=== PATIENT | male | born 1960 | race Caucasian/White ===

== ENCOUNTER → 2020-09-01 | Day surgery (SDC) | payer OTHER ==
[~2020-09-01] MED LIST: NOHOMEMEDICATIONS PO; OXYCODONE HCL 55 MG PO
--- NOTE | ~2020-09-01 | OP ---
[address] [address] OPERATIVE REPORT Name: GAURANG YOON Room: [facility]#: [id number] Admission: 09/01/20 Attend Phys: Joaquim Reyes DO Discharge: Date of : 58 Report #: [id number] THIS REPORT FOR: cc: Tonio Vaz,Tonio Gaytan,Joaquim Doan DO ~ DOC #: [id number] cc: Tonio Vaz DO Dictated by Tan Castanon DO DATE OF SURGERY: 09/01/2020 PREOPERATIVE DIAGNOSIS: Left inguinal hernia. POSTOPERATIVE DIAGNOSIS: Left inguinal hernia. SURGEON: Joaquim Reyes DO. METER ENGINEER: Tan Castanon, PGY5. OPERATION PERFORMED: Da Kamron robotic-assisted laparoscopic left inguinal hernia repair with ProGrip mesh. ANESTHESIA: General and TAP block. ESTIMATED BLOOD LOSS: 20 mL. SPECIMENS: None. COMPLICATIONS: None. INDICATIONS: The patient is a 60-year-old male, who presented to our clinic with a symptomatic bulge of the left groin. He was found on physical exam to have a left inguinal hernia. He was informed of the risks and benefits of robotic-assisted laparoscopic left inguinal hernia repair with possible right-sided repair with risks including, but not limited to bleeding, infection, injury to intra-abdominal structures, hernia recurrence, mesh complications. He understood these risks and decided to proceed with surgery. DESCRIPTION OF PROCEDURE: After informed consent was obtained, the patient was brought to the operating room and placed in supine position. SCDs were on and running. Preoperative antibiotics were given. General anesthesia was administered with an ET tube. The patient was provided with bilateral transversus abdominis plane blocks by anesthesia. The patient was prepped and draped in the usual sterile fashion. A surgical pause was held to confirm proper patient and procedure. A supraumbilical [place] [address] OPERATIVE REPORT Name: CARGAURANG Eddie Room: [facility]#: [id number] Admission: 09/01/20 Attend Phys: Joaquim Reyes, DO Discharge: Date of : 58 Report #: [id number] with an 11 blade. Dissection was bluntly carried down to the fascia using cautery. The fascia was scored using cautery and elevated with two Kochers. Peritoneum was bluntly entered using a Hallie. An 8 mm robotic camera trocar was inserted. The abdomen was insufflated. Camera was introduced. Two additional 8 mm robotic trocars were placed in the left and right abdomen. We placed the patient into Trendelenburg and exploration of the groin and the pelvis was undertaken. There was evidence of a left indirect inguinal hernia, but no evidence of a right-sided hernia. A left-sided anatomical ProGrip mesh, 10 x 15 cm was selected, folded and inserted into the abdomen as well as a 2-0 V-Loc 90. We then docked the da Kamron Si robot. We broke scrub and went to the console. The peritoneal flap was developed from the medial umbilical fold to the peritoneum overlying the left ASIS. Combination of cautery and blunt dissection was used to create a preperitoneal plane. This plane was developed medially and inferiorly until the pubic ramus was reached. The lateral plane was also dissected to accommodate for eventual mesh placement. There was evidence of an indirect inguinal hernia as well as a large left cord lipoma. The cord lipoma was grasped and bluntly reduced and from the cord structures. Once the distal most extent of the cord lipoma was identified. Blunt dissection and cautery were used to separate this from the cord structures. The cord lipoma was completely reduced into the preperitoneal plane without amputating the base of the lipoma. This easily reduced into the preperitoneal space and was from the cord structures as to prevent recurrence of its positioning in the canal. Once the preperitoneal plane was completely dissected to accommodate the mesh, the ProGrip mesh was placed within the preperitoneal space and deployed. There was excellent opposition of the mesh to the tissues. This was photographed. Once it was in adequate position, the peritoneal flap was closed using a running continuous suture with 2-0 V-Loc. There was a small tear in the peritoneum that was closed with an additional needle that was brought in a 2-0 Vicryl. This was closed with a single simple interrupted suture. The peritoneal flap was photographed. The two suture needles were removed. All counts were correct. The abdomen was then desufflated, ports were removed under direct visualization. The camera trocar was removed. The fascia was elevated with two Kochers three sutures [id number]-wumna with 0 Vicryl were used to close the fascia. The skin was closed using 4-0 Monocryl. Wounds were cleansed and dressed with Dermabond. The patient was emerged from anesthesia and transferred to the PACU in stable condition. All counts were correct. Tan Castanon DO CH/DARCI [address] [address] OPERATIVE REPORT Name: GAURANG YOON [facility] [id number] Admission: 09/01/20 Attend Phys: Joaquim Reyes DO Discharge: Date of : 58 Report #: [id number] By: [id number] Reyes DO /nt
[2020-09-01 06:44] LABS: HEMATOCRIT 42.6 % (42.0-52.0); HEMOGLOBIN 14.9 gm/dL (14.0-18.0); MCH 32.6 pg (26.0-34.0); MCV 93.2 fL (80.0-100.0); MPV 6.9 fl. (7.2-11.1); RBC 4.57 mil/uL (4.50-6.00); WBC 6.3 thou/uL (4.0-11.0)
[2020-09-01 06:52] LABS: CALCIUM 8.5 mg/dL (8.5-10.1); CREATININE 0.9 mg/dL (0.6-1.3); POTASSIUM 4.3 mmol/L (3.5-5.1)
--- NOTE | 2020-09-01 10:00 | EKG ---
[place] [address] ELECTROCARDIOGRAM REPORT Name: GAURANG YOON Room: [facility]#: [id number] Admission: 09/01/20 Attend Phys: Joaquim Reyes DO Discharge: Date of : 58 Date of Service: 09/01/20730 Report #: [id number] THIS REPORT FOR: //name// [facility] Test Date: 2020-09-01 Test Time: 07:31:59 Pat Name: GAURANG YOON Department: Room: Gender: Crisis Manager: : 1960 Requested By: Joaquim Reyes Order Number: [id number] Reading MD: Willie Doe Measurements Intervals [place] Rate: 48 P: -22 NE: 142 QRS: 6 QRSD: 90 T: 71 QT: 473 QTc: 423 Interpretive Statements Sinus bradycardia Minimal ST elevation, inferior leads early repolarization No previous ECG available for comparison Electronically Signed On 09-01-2020 10:00:11 CDT by Willie Doe [email or web address] <ELECTRONICALLY SIGNED> By: Willie Doe MD, [facility] 09/01/20 1000 0 0 Willie Doe MD, FACC /EPI
== END | disposition home or self-care (01) ==
LOC: M.SUR 05:57
PROVIDERS: ATTEND Surgery
DX: K40.90 Unilateral inguinal hernia, without obstruction or gangrene, not specified as recurrent (principal); K21.9 Gastro-esophageal reflux disease without esophagitis; F32.9 Major depressive disorder, single episode, unspecified; F41.9 Anxiety disorder, unspecified; Z98.890 Other specified postprocedural states; Z79.899 Other long term (current) drug therapy; Z20.822 Contact with and (suspected) exposure to COVID-19; Z98.52 Vasectomy status

== ENCOUNTER 2021-02-20 17:49 | Inpatient (IN) | payer OTHER ==
[~2021-02-20] VITALS: Ht 170.2 cm; Wt 68.0 kg
--- NOTE | ~2021-02-20 | CON ---
[address] [address] CONSULTATION Name: GAURANG YOON Room: [address] IN M.R.#: [id number] Admission: 02/20/21 Attend Phys: Christian Rios MD Discharge: Date of : 58 Report #: [id number] THIS REPORT FOR: cc: Tonio Vaz Bruce R. DO Blick, David R. MD [facility] ~ DATE OF CONSULTATION: 02/20/2021 CARDIOLOGY CONSULTATION HISTORY OF PRESENT ILLNESS: The patient is a 60-year-old white male who came to the Emergency Room complaining of chest pain. The patient has no previous history of heart disease. He stays very active. He has had no previous cardiac evaluation. He currently is not under physician's care. He notes; however, for the past 2 days prior to admission, he was having chest burning off and on all day long. It apparently never completely went away. However, it got worse, has not improved. On the day of admission, the burning got worse and went into his jaw, arms, he became diaphoretic. Denied any shortness of breath or nausea. His finally drove him to the Emergency Room. ECG showed evidence of acute anterior STEMI. I was asked to see him on emergent basis. At this time, he continues to have the chest discomfort. He denies any recent fever, cough, bleeding. The pain was not related to food. He has had no trauma to his chest. He denies a history of exertional dyspnea, palpitations, syncope, peripheral edema. PAST MEDICAL HISTORY: He had a hernia repair here at [facility] 6 months ago. He has no previous history of hypertension, diabetes, hyperlipidemia. He apparently did have COVID-19 a year ago. CURRENT MEDICATIONS: He is currently on no medications. ALLERGIES: HE HAS A PREVIOUS INTOLERANCE TO LEXAPRO. FAMILY HISTORY: His mother had hypertension. SOCIAL HISTORY: He is . He and his live at [place]. He stays active, riding a bike. He has a [employer] business. He stays very active. He does not smoke cigarettes. He does smoke marijuana. He used to drink fairly heavily, but currently drinks only occasionally. REVIEW OF SYSTEMS: No history of stroke, asthma, liver disease, kidney disease, cancer, psychiatric illness, chronic skin condition. PHYSICAL EXAMINATION: GENERAL: Revealed a middle-aged male, who [place] [address] CONSULTATION Name: GAURANG YOON Room: [address] IN [facility]#: [id number] Admission: 02/20/21 Attend Phys: Christian Rios MD Discharge: Date of : 58 Report #: [id number] secondary to chest pain. VITAL SIGNS: His blood pressure was 160/90, pulse 60, he is afebrile. HEENT: He was anicteric. Conjunctivae pink. Mucous membranes moist. NECK: Veins not distended. No carotid bruits. Neck supple. CHEST: Clear to auscultation. HEART: Regular rate and rhythm. No murmur. ABDOMEN: Soft. EXTREMITIES: Had no edema. Posterior tibial pulse 2+ bilaterally. SKIN: Cool and dry. NEUROLOGIC: Nonfocal. LABORATORY DATA: His ECG on admission showed a sinus rhythm with ST segment elevation of up to 6 mm in leads V1, V2, V3, V4, reciprocal ST segment depression in lead II, III, and aVF. His chest x-ray on admission showed normal heart size, clear lung ro. Some atelectasis was noted. His lab work, sodium 138, potassium 3.7, creatinine 0.7, glucose 101. His high sensitivity troponin on admission was 994. BNP 1370, cholesterol 227, triglyceride 251, HDL 42, LDL 135. His hemoglobin was 14.8. His COVID antigen stat test was negative. IMPRESSION AND RECOMMENDATIONS: 1. Acute anterior STEMI. Recommend urgent cardiac catheterization. 2. Elevated blood pressure. Recommend beta paty. 3. Hyperlipidemia. I would start statin drugs. Critical care time was from 6:15 p.m. until 8:15 p.m. for a total of 2 hours. By: 0749 [id number] Doe MD, FACC /nt
[2021-02-20 17:52] VITALS: BP 190/101
[2021-02-20 18:11] LABS: HEMOGLOBIN 16.5 gm/dL (14.0-18.0); MCH 32.2 pg (26.0-34.0); MCHC 34.8 g/dL (28.0-37.0); MCV 92.5 fL (80.0-100.0)
[2021-02-20 18:13] LABS: ABSOLUTE BASOPHILS 0.1 thou/uL (0.0-0.2); ABSOLUTE LYMPHOCYTES 1.2 thou/uL (0.8-5.3); ABSOLUTE MONOCYTES 0.6 thou/uL (0.0-1.2); ABSOLUTE NEUTROPHILS 8.5 thou/uL (1.6-8.1); BASOPHILS 0.5 %; EOSINOPHILS 0.5 %; HEMATOCRIT 47.5 % (42.0-52.0); LYMPHOCYTES 11.5 %; MONOCYTES 6.1 %; MPV 7.1 fl. (7.2-11.1); NUCLEATED RBCS 0 /100WBC; PLATELET COUNT* 381 thou/uL (150-400); POLYS 81.4 %; RBC 5.14 mil/uL (4.50-6.00); RDW-CV 13.3 % (10.5-14.5); WBC 10.4 thou/uL (4.0-11.0)
[2021-02-20 18:21] LABS: CALCIUM 9.2 mg/dL (8.5-10.1); POTASSIUM 3.5 mmol/L (3.5-5.1)
--- NOTE | 2021-02-20 18:27 | NUR ---
REFER TO STEMI SHEET FOR FURTHER DOCUMENTATION
[2021-02-20 18:31] LABS: ALBUMIN 4.5 g/dL (3.4-5.0); MAGNESIUM 2.1 mg/dL (1.8-2.4); TOTAL BILIRUBIN 0.5 mg/dL (<0.1-1.0); TOTAL PROTEIN 8.9 g/dL (6.4-8.2)
[2021-02-20 18:32] LABS: APTT 29.7 Seconds (25.0-31.3); INR 1.1; PROTIME 11.1 Seconds (9.20-11.50)
--- NOTE | 2021-02-20 18:36 | NUR ---
PT TO MICROPHONE OPERATOR AT THIS TIME WITH TAMARA ROBERT RN AND MICROPHONE OPERATOR RN. PT ON MONITOR AND 02 AT 2L PER NC. PT AND BELONGINGS TAKEN TO MICROPHONE OPERATOR AND TAKEN TO WAITING ROOM.
[2021-02-20 18:37] VITALS: BP 140/84
[2021-02-20 20:30] VITALS: BP 151/88
[2021-02-20 21:00] VITALS: BP 153/98
[2021-02-20 22:00] VITALS: BP 143/108
[2021-02-20 23:00] VITALS: BP 144/90
[2021-02-21] VITALS (20 sets, daily range): BP systolic 118–163; BP diastolic 75–107
[2021-02-21 03:18] LABS: HEMATOCRIT 42.2 % (42.0-52.0); HEMOGLOBIN 14.8 gm/dL (14.0-18.0); MCV 91.6 fL (80.0-100.0); MPV 7.4 fl. (7.2-11.1); RBC 4.61 mil/uL (4.50-6.00); RDW-CV 13.2 % (10.5-14.5); WBC 9.1 thou/uL (4.0-11.0)
[2021-02-21 03:29] LABS: ANION GAP 12 mmol/L (7-16); BUN 12 mg/dL (7-18); CALCIUM 8.7 mg/dL (8.5-10.1); CHLORIDE 102 mmol/L (98-107); CHOLESTEROL 227 mg/dL (<200); CO2 24 mmol/L (21-32); CREATININE 0.7 mg/dL (0.6-1.3); GLUCOSE 101 mg/dL (70-99); HDL CHOLESTEROL 42 mg/dL (>40); LDL CHOLESTEROL 135 mg/dL (<100); POTASSIUM 3.7 mmol/L (3.5-5.1); SODIUM 138 mmol/L (136-145); TC:HDL 5.4 Ratio (Not establshd); TRIGLYCERIDE 251 mg/dL (<150); VLDL 50 mg/dL (<40)
[2021-02-21 03:35] LABS: SERUM ASSESSMENT Slight Lipemia
--- NOTE | 2021-02-21 10:35 | EKG ---
[place] [address] ELECTROCARDIOGRAM REPORT Name: GAURANG YOON Room: [address] ADM IN .R.#: [id number] Admission: 02/20/21 Attend Phys: Christian Rios, Discharge: Date of : 58 Date of Service: 02/20/21 1753 Report #: [id number] THIS REPORT FOR: //name// [facility] ED Test Date: 2021-02-20 Test Time: 17:53:08 Pat Name: GAURANG YOON Department: Room: [facility] Gender: M Tank Farm Attendant: : 1960 Requested By: Сергей Gaston Order Number: [id number] MD: Willie Doe Measurements Intervals [place] Rate: 67 P: -37 AL: 141 QRS: 5 QRSD: 92 T: 52 QT: 397 QTc: 419 Interpretive Statements Sinus rhythm Anterior infarct, possibly acute Compared to ECG 09/01/2020 07:31:59 Myocardial infarct finding now present Sinus bradycardia no longer present Electronically Signed On 02-21-2021 10:35:32 ASSET PROTECTION ASSISTANT by Willie Doe [email or web address] <ELECTRONICALLY SIGNED> By: Willie Doe MD, FAC 02/21/21 1035 1753 1753 Willie Doe MD, [facility] /EPI
--- NOTE | 2021-02-21 10:58 | CARD ---
[address] [address] CARDIAC CATH REPORT Name: GAURANG YOON Eddie Room: [address] IN ..#: [id number] Admission: 02/20/21 Attend Phys: Christian Rios MD Discharge: Date of : 58 Report #: [id number] THIS REPORT FOR: cc: Tonio Vaz Bruce R. DO Blick, David R. MD [facility] ~ APPROVED REPORT Study performed: 02/20/2021 18:31:24 Patient Details Patient Status: ED Room #: The patient is a 60 year-old male Event Personnel Joaquim Cartagena RTR Monitor, Vonda Reyes RTR Scrub, Carley Marie RN RN, Willie Doe Division Human Resources Manager,Enid Cagle RTR Monitor Procedures Performed Art Access - R femoral artery Left Heart Cath w/LT VGram NATALIE Place w/wo Plasty Single LAD Hemostasis w/ Angioseal Indication Abnormal ECG, STEMI (>6 hrs to = 12 hrs), Chest pain Risk Factors Hypercholesterolemia Admission/Lab Medications/Medications given during procedure Glycoprotein IllbIlla Inhibitors, Heparin Unfract., Lidocaine Subcut 20 ml, Aggrastat IV 6.7 ml, Heparin IV 3000 units, Nitroglycerin IC 200 mcg, Adenosine IC 1.5 mcg, Effient PO 60 mg Procedure Narrative The patient was brought emergently to the Cardiac Catheterization Laboratory and was prepped and draped in a sterile manner. The right femoral was infiltrated with 2% Lidocaine subcutaneous anesthesia. IV conscious sedation was used throughout procedure with appropriate monitoring and was performed in the presence of a registered nurse who was an independent trained observer other than the physician performing the procedure. A [place] 6 FR sheath was inserted into the right femoral artery. Coronary [place] [address] CARDIAC CATH REPORT Name: CARGAURANG Eddie Room: [address] IN [facility]#: [id number] Admission: 02/20/21 Attend Phys: Christian Rios MD Discharge: Date of : 58 Report #: [id number] coronary diagnostic catheters. The right coronary system was accessed and visualized with a Diagnostic 6 Fr JR 4 catheter. The left coronary system was accessed and visualized with a Diagnostic 6 Fr JL 4 catheter. The left ventricle was accessed and visualized with a Diagnostic 6 Fr Pigtail catheter. Left ventricular/Aortic Valve gradient assessed via catheter pullback. Left ventriculogram was performed in ALVA projection. Closure device was deployed with a 6 Fr Angioseal STS 6Fr. The patient tolerated the procedure well and there were no complications associated with the procedure. There was no hematoma. Intraoperative Conscious Sedation Sedation start time: 1850 Case end Time: 1942 Fentanyl 50 mcg Versed 2 mg Fluoro Time: 8.00 minutes Dose: DAP 55047 cGycm2 1514.65 mGy Contrast Type and Amount: Visipaque 200 mL Coronary Angiography The patient's coronary anatomy is right dominant. Diagnostic Cath Left Main 0% stenosis LAD 100% occluded proximally with thrombus Diagonal 2 medium sized vessel with 80% ostial stenosis Diagonal 3 medium sized vessel with 70% ostial stenosis Circumflex 0% stenosis Right Coronary 30% proximal stenosis Left Ventriculography The left ventricular ejection fraction is estimated to be 35-40%. Left ventricular wall motion abnormalities are present. There is no mitral insufficiency. severe hypokinesis of the distal anterior wall and apex Hemodynamics The aortic pressure is 156/82 mmHg with a mean of 113 mmHg. The left ventricular pressure is 151/10 mmHg with a mean of mmHg. The left ventricular end diastolic pressure is 20 mmHg. There was no gradient across the aortic valve upon pullback. Pullback from the left ventricle to the aorta revealed no gradient across [place] [address] CARDIAC CATH REPORT Name: GAURANG YOON Room: [address]#: [id number] Admission: 02/20/21 Attend Phys: Christian Rios MD Discharge: Date of : 58 Report #: [id number] PCI Technique Lesion Anticoagulation was achieved with Heparin. bolus of iv aggrastat given Percutaneous coronary intervention was performed on the proximal left anterior descending artery segment. The lesion stenosis prior to intervention was 100% with KARL 0 flow. A 6F XB LAD 3.5 Guide Catheter was used to engage the left ostium. A IG: BMW 190cm Interventional Guidewire was used to cross the lesion. BALLOON DILATION A Balloon catheter Euphora SC 2.5x10 was inserted and inflated up to 10.00atm for 17seconds. Repeat angiography revealed the following post-dilatation results: 70% stenosis. Additional Inflation: 12.00atm for 12seconds. Additional Inflation: 14.00atm for 14seconds. Slow antegrade flow noted after PTCA consistent with slow reflow that resolved with IC Adenosine. STENT DEPLOYMENT A drug-eluting stent Xience Mel RX 2.75 x 23 was inserted and inflated up to 8.00atm for 13seconds. Repeat angiography revealed the following post-stent deployment results: 0% stenosis. Additional Inflation: 9.00atm for 9seconds. Additional Inflation: 15.00atm for 17seconds. After stent placement, a 80% stenosis was noted in the mid LAD. Final angiography reveals 0 % stenosis with KARL 3 flow. PCI Technique Lesion 2 Percutaneous Coronary Intervention was performed on the mid left anterior descending artery segment. Percutaneous coronary intervention was performed on the mid left anterior descending artery segment. The lesion stenosis prior to intervention was 80% with KARL 3 flow. A 6F XB LAD 3.5 Guide Catheter was used to engage the left ostium. A IG: BMW 190cm Interventional Guidewire was used to cross the lesion. Stent Deployment A drug-eluting stent Xience Mel RX 2.5X15 was inserted and inflated up to 8.00atm for 9seconds. Repeat angiography revealed the following post-stent deployment results: 0% stenosis. Additional Inflation: 10.00atm for 13seconds. Final angiography reveals 0 % stenosis with KARL [address] Conclusion [address] [place] [address] CARDIAC CATH REPORT Name: GAURANG YOON Room: [address] IN .R.#: [id number] Admission: 02/20/21 Attend Phys: Christian Rios MD Discharge: Date of : 58 Report #: [id number] 1. Anterior STEMI with acute occlusion of the proximal LAD. 2. successful placement of drug eluting stents placed in the proximal and mid LAD. 3. LVEF 35-40% Recommendations Cardiac Rehabilitation Referral Aggressive Medical Therapy Medications Administered Prasugrel <ELECTRONICALLY SIGNED> By: Willie Doe MD, [facility] 02/21/21 1058 1058Willie Doe MD, FACC /INF
--- NOTE | 2021-02-21 11:59 | NUR ---
CM COMPLETED INITIAL ASSESSMENT TO [facility] D/C PLANNING AND HOME SITUATION. PT LIVES AT HOME WITH . ACTIVE ADN INDEPENDENT W/CARES, PT STATED, "I JUST TOLD MY , I THOUGHT I WAS HEATLHY, BUT I GUESS NOT." PT HAS NO DMES. PT HAS NO HX W/ HH OR SNF. PT DOES NOT BELEIVE HE WANTS HH AT [facility].
--- NOTE | 2021-02-21 17:46 | NUR ---
Pt transferred from ICU to at 1450. Assumed care of pt and received report from INDIRA Lawrence. Physical assessment unchanged from previous assessments completed in ICU. Labs unremarkable, pt in stable condition. Pt transferred with belongings, switched over to tele monitor, and settled into bed. VS taken, VSS. Pt's spouse is at the bedside. Monitor showing SR with HR in the 70s. Bed in low locked position, call light and personal belongings are within the pt's reach, pt instructed to call out for help. Pt verbalized understanding. Will continue to monitor.
[2021-02-22 00:31] VITALS: BP 116/73
[2021-02-22 05:30] VITALS: BP 127/82
--- NOTE | 2021-02-22 08:02 | NUR ---
ASSUMED CARE OF PT AFTER REPOR AT 1930. PT A&OX4. VSS. PHYSICAL ASSESSMENT COMPLETED AND CHARTED. PT ON RA. PT TRACING SR/SB/PAC ON TELE. POST CATH SITE TO RIGHT GROIN CLEAN, DRY & INTACT. NO BLEEDING NOTED. CALL LIGHT WITHIN REACH.
[2021-02-22 10:00] VITALS: BP 149/91
[2021-02-22 10:10] LABS: CALCIUM 9.1 mg/dL (8.5-10.1); POTASSIUM 3.8 mmol/L (3.5-5.1)
[2021-02-22 12:00] VITALS: BP 137/89
[2021-02-22 16:00] VITALS: BP 154/94
--- NOTE | 2021-02-22 16:32 | EKG ---
[place] [address] ELECTROCARDIOGRAM REPORT Name: GAURANG YOON Room: [address] ADM IN ..#: [id number] Admission: 02/20/21 Attend Phys: Christian Rios, Discharge: Date of : 58 Date of Service: 02/21/21 0609 Report #: [id number] THIS REPORT FOR: //name// [facility] Test Date: 2021-02-21 Test Time: 06:09:12 Pat Name: GAURANG YOON Department: Room: [facility] Gender: M Internet Marketing Coordinator: GISSELL : 1960 Requested By: Preet Coon Order Number: [id number] MD: Willie Doe Measurements Intervals [place] Rate: 63 P: -43 VA: 135 QRS: 6 QRSD: 91 T: 118 QT: 476 QTc: 488 Interpretive Statements Sinus rhythm Probable anterior infarct, age indeterminate Lateral leads are also involved Compared to ECG 02/20/2021 17:53:08 st segment elevation less prominent Electronically Signed On 02-22-2021 16:32:26 FITTING ROOM CHECKER by Willie Doe [email or web address] <ELECTRONICALLY SIGNED> By: Willie Doe MD, [facility] 02/22/21 1632 0609 0609 Willie Doe MD, [facility] /EPI
[2021-02-22 20:00] VITALS: BP 156/92
[2021-02-23] VITALS: BP 124/77
[2021-02-23 04:00] VITALS: BP 133/88
[2021-02-23 05:06] LABS: GLYCOHEMOGLOBIN (HGB A1C) 5.5 % (4.8-5.6)
--- NOTE | 2021-02-23 06:36 | NUR ---
ASSUMED CARE OF PT AFTER REPORT AT 1930. PT A&OX4. VSS. PHYSICAL ASSESSMENT COMPLETED AND CHARTED. PT ON RA. PT TRACING SR/SB/SA ON TELE. PT UPADLIB TO RESTROOM. PT DENIES ANY PAIN. CALL LIGHT WITHIN REACH.
--- NOTE | 2021-02-23 07:10 | NUR ---
CHANGE OF SHIFT REPORT GIVEN PATIENT SEEN AT BEDSIDE, IN BED ASLEEP ASSUMED PATIENT CARE
[2021-02-23 08:00] VITALS: BP 137/88
[2021-02-23] MEDS ORDERED: EFFIENT10 MG PO (10:17)
[2021-02-23] MEDS ORDERED: XANAX 0.25 MG0.25 MG PO (10:17)
[2021-02-23] MEDS ORDERED: CARVEDILOL3.125 MG PO (10:17)
[2021-02-23] MEDS ORDERED: BAYER CHEWABLE81 MG PO (10:17)
[2021-02-23] MEDS ORDERED: COZAAR 50 MG TA50 M1 PO (10:17)
[2021-02-23] MEDS ORDERED: LIPITOR 40 MG T40 M1 PO (10:17)
[2021-02-23 10:26] VITALS: BP 137/88
--- NOTE | 2021-02-23 11:45 | NUR ---
patient discharged to home iv and heart moniutor removed personal belongigns returned patient assisted out via good condition to with waiting car
== END 2021-02-23 11:55 | disposition home or self-care (01) | DRG 246 ==
LOC: M.ERS 17:49 → M.CL 18:20 → M.TBA-CV 18:20 → M.TBA-ER 18:22 → M.ICU 18:22 → M.2W 02-21 14:42
PROVIDERS: Emergency Medicine Emergency Medical Services; Internal Medicine; Internal Medicine Cardiovascular Disease; ADMIT Internal Medicine; ATTEND Internal Medicine
PROC: B2111ZZ Fluoroscopy of Multiple Coronary Arteries using Low Osmolar Contrast (ICD-10-PCS; principal; 2021-02-20)
PROC: 4A023N7 Measurement of Cardiac Sampling and Pressure, Left Heart, Percutaneous Approach (ICD-10-PCS; principal; 2021-02-20)
PROC: B2151ZZ Fluoroscopy of Left Heart using Low Osmolar Contrast (ICD-10-PCS; principal; 2021-02-20)
PROC: 027035Z Dilation of Coronary Artery, One Artery with Two Drug-eluting Intraluminal Devices, Percutaneous Approach (ICD-10-PCS; principal; 2021-02-20)
DX: I21.09 ST elevation (STEMI) myocardial infarction involving other coronary artery of anterior wall (principal); I50.21 Acute systolic (congestive) heart failure; E78.5 Hyperlipidemia, unspecified; I11.0 Hypertensive heart disease with heart failure; Z88.8 Allergy status to other drugs, medicaments and biological substances; Z20.822 Contact with and (suspected) exposure to COVID-19

== ENCOUNTER 2021-03-01 14:46 | Inpatient (IN) | payer OTHER ==
[~2021-03-01] VITALS: Ht 170.2 cm; Wt 65.3 kg
[~2021-03-01 14:46] MED LIST changes: +BAYER CHEWABLE81 MG PO; +CARAFATE 1 GM TA1 G1 PO; +CARVEDILOL3.125 MG PO; +COZAAR 50 MG TA50 M1 PO; +EFFIENT10 MG PO; +LIPITOR 40 MG T40 M1 PO; +XANAX 0.25 MG0.25 MG PO; +XANAX 0.5 MG0.5 M1 PO
[2021-03-01 14:57] VITALS: BP 149/82
[2021-03-01 15:40] LABS: ABSOLUTE EOSINOPHILS 0.2 thou/uL (0.0-0.7); ABSOLUTE LYMPHOCYTES 1.2 thou/uL (0.8-5.3); ABSOLUTE NEUTROPHILS 5.1 thou/uL (1.6-8.1); BASOPHILS 0.4 %; EOSINOPHILS 2.2 %; HEMOGLOBIN 14.5 gm/dL (14.0-18.0); MPV 6.9 fl. (7.2-11.1)
[2021-03-01 15:41] LABS: ABSOLUTE MONOCYTES 0.5 thou/uL (0.0-1.2); HEMATOCRIT 40.8 % (42.0-52.0); LYMPHOCYTES 16.9 %; MCH 32.5 pg (26.0-34.0); MCHC 35.6 g/dL (28.0-37.0); MCV 91.2 fL (80.0-100.0); MONOCYTES 7.4 %; NUCLEATED RBCS 0 /100WBC; PLATELET COUNT* 351 thou/uL (150-400); POLYS 73.1 %; RBC 4.47 mil/uL (4.50-6.00); RDW-CV 13.2 % (10.5-14.5)
[2021-03-01 15:47] LABS: CALCIUM 8.5 mg/dL (8.5-10.1); CREATININE 0.9 mg/dL (0.6-1.3)
[2021-03-01 22:00] VITALS: BP 141/94
[2021-03-01 22:13] VITALS: BP 162/87
[2021-03-01 22:59] VITALS: BP 162/87
[2021-03-02] VITALS (7 sets, daily range): BP systolic 104–166; BP diastolic 55–99
--- NOTE | 2021-03-02 15:49 | CARD ---
[address] [address] CARDIAC CATH REPORT Name: TENZIN YOON Room: [address] IN [facility].#: [id number] Admission: 03/01/21 Attend Phys: Chance Vanegas MD Discharge: Date of : 58 Report #: [id number] THIS REPORT FOR: cc: Tonio Vaz Bruce R. DO Holkins,James Thao MD [facility] ~ APPROVED REPORT Study performed: 03/02/2021 10:17:57 Patient Details Patient Status: In-Patient Room #: [facility] The patient is a 60 year-old male Event Personnel Dr Vanegas, Dr Sanford, Elsy Das RN, Joaquim Cartagena RTR, Sara Hernandez RTR Procedures Performed Left heart cath with LV pressures, PTCA 2nd Diagonal branch, NATALIE proximal LAD, NATALIE mid LAD, Angioseal closure LFA Indication Unstable angina Risk Factors Hypercholesterolemia Previous Procedures/Diagnoses Previous PCI, Previous NM Admission/Lab Medications/Medications given during procedure Platelet Aff. Inhib. Procedure Narrative The patient was brought urgently to the Cardiac Catheterization Laboratory and was prepped and draped in a sterile manner. The left femoral was infiltrated with 2% Lidocaine subcutaneous anesthesia. IV conscious sedation was used throughout procedure with appropriate monitoring and was performed in the presence of a registered nurse who was an independent trained observer other than the physician performing the procedure. A 6Fr Guthrie sheath was inserted into the left femoral artery. Coronary angiography was performed using coronary diagnostic catheters. The [place] [address] CARDIAC CATH REPORT Name: TENZIN YOON Room: [address] IN [facility].#: [id number] Admission: 03/01/21 Attend Phys: Chance Vanegas MD Discharge: Date of : 58 Report #: [id number] and visualized with a Diagnostic JL4 6Fr catheter. Left ventricular/Aortic Valve gradient assessed via catheter pullback. Pre-demployment femoral angiogram was performed in [facility]. Closure device was deployed with a 6 Fr Angioseal. The patient tolerated the procedure well and there were no complications associated with the procedure. There was no hematoma. Intraoperative Conscious Sedation Sedation start time: 1156 Case end Time: 1256 Fentanyl 25.0 mcg Versed 1.0 mg Fluoro Time: 12.9 minutes Dose: DAP 62911 cGycm2 1411 mGy Contrast Type and Amount: Omnipaque 240 ml Hemodynamics The aortic pressure is 129/69 mmHg with a mean of 69 mmHg. The left ventricular pressure is 123/4 mmHg with a mean of 9 mmHg. The left ventricular end diastolic pressure is 9 mmHg. PCI Technique Lesion Anticoagulation was achieved with Angiomax. Percutaneous coronary intervention was performed on the First diagonal branch. The lesion stenosis prior to intervention was 80% with KARL 3 flow. A 6Fr XB LAD 3.5 Guide Catheter was used to engage the Left ostium. A BMW 190cm Interventional Guidewire was used to cross the lesion. BALLOON DILATION A Balloon catheter 2.0 x 8 Mini Trek was inserted and inflated up to 8atm for 4seconds. Additional Inflation: 8atm for 6seconds. Additional Inflation: 10atm for 18seconds. Final angiography reveals 10 % stenosis with KARL 3 flow. PCI Technique Lesion 2 Percutaneous Coronary Intervention was performed on the mid left anterior descending artery segment. The lesion stenosis prior to intervention was 75% with KARL 3 flow. A ProwaterFlex 180cm Interventional Guidewire was used to cross the lesion. Balloon Dilation A Balloon catheter 2.5 x 15 Trek was inserted and inflated up to 14atm for 10seconds. Additional Inflation: 14atm for 10seconds. [place] [address] CARDIAC CATH REPORT Name: TENZIN YOON Room: [address]#: [id number] Admission: 03/01/21 Attend Phys: Chance Vanegas MD Discharge: Date of : 58 Report #: [id number] Stent Deployment A drug-eluting stent 2.5 x 22 Ottoniel was inserted and inflated up to 12atm for 5seconds. Additional Inflation: 14atm for 7seconds. Additional Inflation: 16atm for 8seconds. Post Stent Deployment Balloon Dilation Additional Inflation: alejandra for 13seconds. Additional Inflation: alejandra for 7seconds. Final angiography reveals 0 % stenosis with KARL 3 flow. Comments The LAD PCI was technically complex by virtue of the bifurcation nature of the disease requiring treatment of the ostium of the diagonal through a previously deployed stent, the mid LAD and postdilatation of the previously deployed proximal LAD stent with deployment of an additional stent just proximal to the previously deployed proximal LAD stent. PCI Technique Lesion 3 Percutaneous Coronary Intervention was performed on the proximal left anterior descending artery segment. The lesion stenosis prior to intervention was 70% with KARL 3 flow. Stent Deployment A drug-eluting stent 3.0 x 8 [place] was inserted and inflated up to 12atm for 714seconds. Additional Inflation: 14atm for 6seconds. Final angiography reveals 0 % stenosis with KARL 3 flow. Comments The proximal LAD segment was postdilated with a 3.0 x 12 mm NC trek inflated to 16 to 20 alejandra Conclusion 1. Significant coronary artery disease characterized by the following: A 70% very proximal LAD stenosis just prior to a previously deployed stent with 75% mid LAD stenosis and 80% ostial [place] [address] CARDIAC CATH REPORT Name: TENZIN YOON Room: [address] IN [facility].#: [id number] Admission: 03/01/21 Attend Phys: Chance Vanegas MD Discharge: Date of : 58 Report #: [id number] B no significant stenosis of the left main circumflex or previously defined right coronary artery 2. Successful PTCA of the ostium of the first diagonal with 10% residual narrowing and KARL-3 flow to the distal vessel 3. Successful PCI with deployment of a drug-eluting stent at the site of 75% tubular mid LAD stenosis with 0% residual narrowing and KARL-3 flow the distal vessel 4. Postdilatation of the previously deployed proximal LAD stent with a 3.0 x 12 mm NC trek inflated to 16 to 20 alejandra; there was 0% residual narrowing 5. Placement of a single 3.0 x 8 mm Ottoniel drug-eluting stent just proximal to the previously deployed proximal LAD stent with 0% residual narrowing and KARL-3 flow the distal vessel Recommendations Cardiac Risk Reduction Program Aggressive Medical Therapy Medications Administered Prasugrel Diagnostic Cath Approved by: Chance Vanegas MD Date/Time: 03/02/2021 15:45:41 <ELECTRONICALLY SIGNED> By: James Sanford MD, [facility] 03/02/21 1549 1549 1549James Sanford MD, FAC /INF
[2021-03-03 00:42] VITALS: BP 115/80
[2021-03-03 04:39] VITALS: BP 131/86
[2021-03-03 08:00] VITALS: BP 121/64
[2021-03-03 09:50] LABS: HEMOGLOBIN 13.6 gm/dL (14.0-18.0); MCH 31.9 pg (26.0-34.0); MCHC 34.8 g/dL (28.0-37.0); MCV 91.7 fL (80.0-100.0); MPV 7.4 fl. (7.2-11.1); RBC 4.26 mil/uL (4.50-6.00); WBC 5.8 thou/uL (4.0-11.0)
[2021-03-03 10:20] LABS: ALBUMIN 3.3 g/dL (3.4-5.0); CALCIUM 8.2 mg/dL (8.5-10.1); CREATININE 0.9 mg/dL (0.6-1.3); TOTAL BILIRUBIN 0.6 mg/dL (<0.1-1.0); TOTAL PROTEIN 6.6 g/dL (6.4-8.2)
[2021-03-03 11:54] VITALS: BP 118/67
[2021-03-03 12:00] LABS: ABSOLUTE EOSINOPHILS 0.2 thou/uL (0.0-0.7); ABSOLUTE LYMPHOCYTES 1.2 thou/uL (0.8-5.3); ABSOLUTE MONOCYTES 0.5 thou/uL (0.0-1.2); ABSOLUTE NEUTROPHILS 4.2 thou/uL (1.6-8.1); BASOPHILS 0.5 %; EOSINOPHILS 2.9 %; HEMATOCRIT 38.5 % (42.0-52.0); HEMOGLOBIN 13.2 gm/dL (14.0-18.0); LYMPHOCYTES 18.9 %; MCH 31.3 pg (26.0-34.0); MCHC 34.2 g/dL (28.0-37.0); MCV 91.5 fL (80.0-100.0); MONOCYTES 8.6 %; MPV 7.5 fl. (7.2-11.1); NUCLEATED RBCS 0 /100WBC; PLATELET COUNT* 363 thou/uL (150-400); POLYS 69.1 %; RBC 4.21 mil/uL (4.50-6.00); RDW-CV 12.7 % (10.5-14.5); WBC 6.1 thou/uL (4.0-11.0)
[2021-03-03 15:05] VITALS: BP 121/76
--- NOTE | 2021-03-03 15:09 | EKG ---
[place] [address] ELECTROCARDIOGRAM REPORT Name: CARTENZIN W Room: [address] ADM IN M.R.#: [id number] Admission: 03/01/21 Attend Phys: Chance Vanegas, Discharge: Date of : 58 Date of Service: 03/01/21 1455 Report #: [id number] THIS REPORT FOR: //name// [facility] ED Test Date: 2021-03-01 Test Time: 14:55:57 Pat Name: TENZIN YOON Department: Room: [facility] Gender: M Infection Control Nurse: TP : 1960 Requested By: Arron Sumner Order Number: [id number] MD: Chance Vanegas Measurements Intervals [place] Rate: 56 P: -37 NE: 145 QRS: 26 QRSD: 96 T: 83 QT: 448 QTc: 433 Interpretive Statements Sinus rhythm Abnrm T, consider ischemia, anterolateral lds ST elevation, consider anterolateral injury Compared to ECG 02/28/2021 20:57:37 Possible ischemia now present ST (T wave) deviation now present Myocardial infarct finding still present Electronically Signed On 03-03-2021 15:09:17 COMMERCIAL MARKETING SPECIALIST by Chance Vanegas [email or web address] <ELECTRONICALLY SIGNED> By: Chance Vanegas MD, FACC 03/03/21 1509 1455 1455 Chance Vanegas MD, FAC /EPI
--- NOTE | 2021-03-03 15:13 | EKG ---
[place] [address] ELECTROCARDIOGRAM REPORT Name: TENZIN YOON Room: [address] ADM IN M.R.#: [id number] Admission: 03/01/21 Attend Phys: Chance Vanegas, Discharge: Date of : 58 Date of Service: 03/02/21 0058 Report #: [id number] THIS REPORT FOR: //name// [facility] Test Date: 2021-03-02 Test Time: 00:58:10 Pat Name: TENZIN YOON Department: Room: [address] Gender: M Narrow Gauge Operator: DT : 1960 Requested By: Christian Rios Order Number: [id number] Reading MD: Chance Vanegas Measurements Intervals [place] Rate: 58 P: -23 MN: 140 QRS: 19 QRSD: 94 T: 78 QT: 432 QTc: 425 Interpretive Statements Sinus rhythm Anteroseptal infarct, recent Baseline wander in lead(s) V2 Compared to ECG 03/01/2021 14:55:57 ST (T wave) deviation still present Electronically Signed On 03-03-2021 15:12:37 HAND BINDERY ASSEMBLY WORKER by Chance Vanegas [email or web address] <ELECTRONICALLY SIGNED> By: Chance Vanegas MD, FACC 03/03/21 1512 0058 0058 Chance Vanegas MD, FACC /EPI
--- NOTE | 2021-03-03 15:18 | EKG ---
[place] [address] ELECTROCARDIOGRAM REPORT Name: TENZIN YOON Room: [address] ADM IN M.R.#: [id number] Admission: 03/01/21 Attend Phys: Chance Vanegas, Discharge: Date of : 58 Date of Service: 03/02/21 1316 Report #: [id number] THIS REPORT FOR: //name// [facility] Test Date: 2021-03-02 Test Time: 13:16:42 Pat Name: TENZIN YOON Department: Room: [address] Gender: M Meals On Wheels Driver: : 1960 Requested By: Chance Vanegas Order Number: [id number] Reading MD: Chance Vanegas Measurements Intervals [place] Rate: 57 P: -36 NM: 148 QRS: 38 QRSD: 92 T: 82 QT: 461 QTc: 449 Interpretive Statements Sinus rhythm Anteroseptal infarct, recent Compared to ECG 03/02/2021 00:58:10 No significant changes Electronically Signed On 03-03-2021 15:18:05 CONTROL TECHNICIAN by Chance Vanegas [email or web address] <ELECTRONICALLY SIGNED> By: Chance Vanegas MD, FACC 03/03/21 1518 1316 1316 Chance Vanegas MD, FAC /EPI
[2021-03-03 20:00] VITALS: BP 131/79
[2021-03-04] VITALS: BP 128/69
[2021-03-04 04:00] VITALS: BP 145/74
[2021-03-04 08:00] VITALS: BP 129/77
[2021-03-04 12:00] VITALS: BP 131/77
[2021-03-04 14:12] VITALS: BP 131/77
--- NOTE | 2021-03-05 08:12 | D ---
[facility] [address] [place] [address] DISCHARGE SUMMARY Name: TENZIN YOON Room: [address] IN M.R.#: [id number] Admission: 03/01/21 Attend Phys: Chance Vanegas MD Discharge: 03/04/21 Date of : 58 Report #: [id number] THIS REPORT FOR: cc: Tonio Vaz Bruce R. DO Liston, Michael J. MD [facility] ~ DATE OF DISCHARGE: 03/04/2021 DISCHARGE DIAGNOSES: 1. Unstable angina. 2. Coronary artery disease. 3. Hypertension. 4. Hyperlipidemia. 5. Gastroesophageal reflux disease. 6. Ischemic cardiomyopathy. PROCEDURES DURING HOSPITALIZATION: 1. Coronary angiography. 2. Left heart catheterization. 3. Percutaneous coronary intervention to the mid LAD. HOSPITAL COURSE: The patient was admitted from the office with recurrent chest pain after recent intervention to the proximal and mid LAD. The patient had stenosis between the stents. He underwent percutaneous coronary intervention with balloon angioplasty to the origin of the first diagonal and stent placement to the proximal to mid left anterior descending coronary artery without complication. He did have some mild oozing on the day of the catheterization. He was discharged uneventfully. DISCHARGE MEDICATIONS: Will include aspirin 81 mg daily, losartan 25 mg daily, Effient 10 mg daily, Protonix 40 mg daily, atorvastatin 40 mg nightly, carvedilol 3.125 mg b.i.d., Nitrostat sublingual p.r.n. DISPOSITION: The patient will follow up in the office in 2 weeks. <ELECTRONICALLY SIGNED> By: Chance Vanegas MD, FACC 03/05/21 0812 1312 1344Micanuj Vanegas MD, FACC /nt
== END 2021-03-04 14:20 | disposition home or self-care (01) | DRG 247 ==
LOC: M.ERS 14:46 → M.TBA-ER 15:39 → M.ORTHSURG 17:18 → M.TBA-ER 17:18 → M.ORTHSURG 22:49
PROVIDERS: Emergency Medicine; ADMIT Internal Medicine Cardiovascular Disease; ATTEND Internal Medicine Cardiovascular Disease
PROC: B41G1ZZ Fluoroscopy of Left Lower Extremity Arteries using Low Osmolar Contrast (ICD-10-PCS; principal; 2021-03-02)
PROC: 027035Z Dilation of Coronary Artery, One Artery with Two Drug-eluting Intraluminal Devices, Percutaneous Approach (ICD-10-PCS; principal; 2021-03-02)
PROC: 4A023N7 Measurement of Cardiac Sampling and Pressure, Left Heart, Percutaneous Approach (ICD-10-PCS; principal; 2021-03-02)
PROC: 02703ZZ Dilation of Coronary Artery, One Artery, Percutaneous Approach (ICD-10-PCS; principal; 2021-03-02)
PROC: B2111ZZ Fluoroscopy of Multiple Coronary Arteries using Low Osmolar Contrast (ICD-10-PCS; principal; 2021-03-02)
DX: I25.110 Atherosclerotic heart disease of native coronary artery with unstable angina pectoris (principal); Z20.822 Contact with and (suspected) exposure to COVID-19; I10 Essential (primary) hypertension; E78.5 Hyperlipidemia, unspecified; K21.9 Gastro-esophageal reflux disease without esophagitis; I25.5 Ischemic cardiomyopathy; S30.1XXA Contusion of abdominal wall, initial encounter; X58.XXXA Exposure to other specified factors, initial encounter; Z28.21 Immunization not carried out because of patient refusal; Y93.89 Activity, other specified; Y92.89 Other specified places as the place of occurrence of the external cause; Y99.8 Other external cause status; Z98.52 Vasectomy status; Z82.49 Family history of ischemic heart disease and other diseases of the circulatory system; Z88.8 Allergy status to other drugs, medicaments and biological substances

== ENCOUNTER 2021-03-07 14:05 | Emergency (ER) | payer OTHER ==
[~2021-03-07] VITALS: Ht 170.2 cm; Wt 64.9 kg
[2021-03-07 14:38] LABS: ABSOLUTE EOSINOPHILS 0.2 thou/uL (0.0-0.7); ABSOLUTE LYMPHOCYTES 1.6 thou/uL (0.8-5.3); ABSOLUTE MONOCYTES 0.6 thou/uL (0.0-1.2); ABSOLUTE NEUTROPHILS 3.9 thou/uL (1.6-8.1); BASOPHILS 0.5 %; EOSINOPHILS 2.7 %; HEMOGLOBIN 14.3 gm/dL (14.0-18.0); LYMPHOCYTES 25.3 %; MCHC 34.8 g/dL (28.0-37.0); MCV 91.9 fL (80.0-100.0); MONOCYTES 9.3 %; MPV 7.1 fl. (7.2-11.1); NUCLEATED RBCS 0 /100WBC; PLATELET COUNT* 404 thou/uL (150-400); POLYS 62.2 %; RBC 4.46 mil/uL (4.50-6.00); RDW-CV 13.1 % (10.5-14.5); WBC 6.3 thou/uL (4.0-11.0)
[2021-03-07 14:43] LABS: CALCIUM 8.8 mg/dL (8.5-10.1)
[2021-03-07 14:53] LABS: ALBUMIN 4.2 g/dL (3.4-5.0); MAGNESIUM 2.2 mg/dL (1.8-2.4); TOTAL BILIRUBIN 0.7 mg/dL (<0.1-1.0); TOTAL PROTEIN 7.9 g/dL (6.4-8.2)
--- NOTE | 2021-03-07 16:55 | EKG ---
[place] [address] ELECTROCARDIOGRAM REPORT Name: TENZIN YOON Room: [facility]#: [id number] Admission: 03/07/21 Attend Phys: Discharge: Date of : 58 Date of Service: 03/07/21 1406 Report #: [id number] THIS REPORT FOR: //name// [facility] ED Test Date: 2021-03-07 Test Time: 14:06:52 Pat Name: TENZIN YOON Department: Room: Gender: Portable Machine Cutter: : 1960 Requested By: Сергей Gaston Order Number: [id number] MD: Willie Doe Measurements Intervals [place] Rate: 56 P: -24 NE: 156 QRS: 34 QRSD: 96 T: 125 QT: 473 QTc: 457 Interpretive Statements Sinus rhythm Abnrm T, probable ischemia, anterolateral lds Compared to ECG 03/02/2021 13:16:42 no change Electronically Signed On 03-07-2021 16:55:03 CNA by Willie Doe [email or web address] <ELECTRONICALLY SIGNED> By: Willie Doe MD, [facility] 03/07/21 1655 1406 1406 Willie Doe MD, [facility] /EPI
--- NOTE | 2021-03-07 16:56 | EKG ---
[place] [address] ELECTROCARDIOGRAM REPORT Name: TENZIN YOON Room: [facility]#: [id number] Admission: 03/07/21 Attend Phys: Discharge: Date of : 58 Date of Service: 03/07/21 1453 Report #: [id number] THIS REPORT FOR: //name// [facility] ED Test Date: 2021-03-07 Test Time: 14:53:52 Pat Name: TENZIN YOON Department: Room: Gender: Pharmacy Informatics Manager: : 1960 Requested By: Сергей Gaston Order Number: [id number] MD: Willie Doe Measurements Intervals [place] Rate: 53 P: -14 NE: 156 QRS: 19 QRSD: 100 T: 119 QT: 498 QTc: 468 Interpretive Statements Sinus bradycardia Abnormal R-wave progression, late transition Abnrm T, probable ischemia, anterolateral lds Compared to ECG 03/07/2021 14:06:52 No significant changes Electronically Signed On 03-07-2021 16:56:23 SAMPLE PROCESSOR by Willie Doe [email or web address] <ELECTRONICALLY SIGNED> By: Willie Doe MD, [facility] 03/07/21 1656 1453 1453 Willie Doe MD, [facility] /EPI
[2021-03-07 18:04] VITALS: BP 153/94
--- NOTE | 2021-03-08 15:54 | CON ---
[address] [address] CONSULTATION Name: TENZIN YOON Room: [facility] Criselda#: [id number] Admission: 03/07/21 Attend Phys: Discharge: 03/07/21 Date of : 58 Report #: [id number] THIS REPORT FOR: cc: FAM - No family physician/PCP FAM - No family physician/PCP Willie Doe MD [facility] ~ DATE OF CONSULTATION: 03/07/2021 CARDIOLOGY CONSULTATION HISTORY OF PRESENT ILLNESS: The patient is a 60-year-old white male who came to the Emergency Room complaining of chest pain. The patient had no previous heart disease. However, he presented on 02/20 after having 2 days of intermittent chest burning. It never completely went away. On the day of admission, became worse, went into his jaw became diaphoretic. His drove him to the Emergency Room on 02/20, he was found to have evidence of acute anterior STEMI. I performed an emergent cardiac catheterization. This was performed from the right femoral artery. Results showed acute occlusion of the proximal LAD. Ejection fraction 35%. I then placed 2 drug-eluting stents in the proximal and mid LAD. He was placed on prasugrel and aspirin. He was on no medications when he was admitted and he was also sent home on Lipitor, carvedilol, losartan and the prasugrel. He returned a week later with recurrent chest pressure. He had repeat cardiac catheterization performed from the left femoral artery. He had 2 additional stents placed. Since that time, he continues to have chest discomfort that lasts almost all day long. It is not related to exertion or meals. He has had no bleeding, fever or cough. He has not taken any nitroglycerin. Denies any shortness of breath, palpitations, syncope, peripheral edema. Today, he went to cardiac rehab and told him he is having chest tightness. He was told to go to the Emergency Room to be evaluated. PAST MEDICAL HISTORY: Hernia repair. No history of hypertension, diabetes, hyperlipidemia. CURRENT MEDICATIONS: He is currently on prasugrel, atorvastatin, carvedilol, losartan, aspirin. ALLERGIES: HE HAS PREVIOUS INTOLERANCE TO LEXAPRO. FAMILY HISTORY: His mom had hypertension. SOCIAL HISTORY: . He and his live in [place]. He stays active, riding a bike. 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 He does not smoke cigarettes, but smokes marijuana. [place] [address] CONSULTATION Name: TENZIN YOON Room: [facility] Criselda#: [id number] Admission: 03/07/21 Attend Phys: Discharge: 03/07/21 Date of : 58 Report #: [id number] REVIEW OF SYSTEMS: No history of stroke, asthma, liver disease, kidney disease, cancer, psychiatric illness, chronic skin condition. PHYSICAL EXAMINATION: GENERAL: Revealed an elderly male, appeared in no acute distress. VITAL SIGNS: He had a blood pressure of 140/80, pulse 60. He was afebrile. HEENT: He was anicteric. Conjunctivae pink. Mucous membranes moist. NECK: Veins not distended. No carotid bruits. Neck is supple. CHEST: Clear to auscultation. HEART: Regular rate and rhythm without murmur or rub. ABDOMEN: Soft. EXTREMITIES: Had no edema. Posterior tibial pulse 3+ bilaterally. SKIN: Cool and dry. NEUROLOGIC: Nonfocal. LABORATORY DATA: His ECG today showed sinus bradycardia, poor R-wave progression, T-wave inversions in V1 through V6 and compared to electrocardiogram done on 03/01, there was no significant additional change. His workup in the Emergency Room today, he had a portable chest x-ray that showed normal heart size, clear lung ro. Laboratory work today, creatinine 1.0, glucose 90. Liver function studies were normal. High sensitivity troponin is 27. His BNP 404. His hemoglobin 14.3. IMPRESSION AND RECOMMENDATIONS: 1. Chest pressure. Suspect noncardiac. Continue medical therapy. 2. Cardiomyopathy. The patient is having hallucinations at night. I did recommend discontinuing the small dose of carvedilol. I would continue losartan. 3. Hyperlipidemia. The patient is on a statin drug. 4. Bilateral groin hematoma. No evidence of infection. Appears to be healing well. <ELECTRONICALLY SIGNED> By: Willie Doe MD, FACC 03/08/21 1554 1634 [id number] Doe MD, FACC /nt
== END 2021-03-07 18:05 | disposition home or self-care (01) ==
LOC: M.ERS 14:05
PROVIDERS: Emergency Medicine Emergency Medical Services
DX: R07.89 Other chest pain (principal); Z98.890 Other specified postprocedural states; Z88.8 Allergy status to other drugs, medicaments and biological substances